=== PATIENT | female | born 1990 | race African-American/Black ===

== ENCOUNTER 2025-01-26 11:26 | Emergency (ER) | payer MEDICAID ==
[~2025-01-26] VITALS: Ht 160 cm; Wt 50.0 kg
[~2025-01-26 11:26] MED LIST: NEOM10DR45 OT; ONDA8TAB9 PO
[2025-01-26 11:34] VITALS: BP 115/88; PULSE 68; RESP 16; TEMP 97.8; O2SAT 98
--- NOTE | 2025-01-26 11:36 | Physician Documentation ---
History of Present Illness Stated Complaint: MED CLEARANCE Time Seen by MD: 11:29 Primary Medical Doctor: [facility] 34-year-old female presents via [facility] for a suspected foreign body in her rectum. According to [employer] the x-ray at the assisted indicated some sort of mental object that they attempted to retrieve however they were unable to. Patient states she does not know what the object is but thinks it is some kind of "metal object" Day of Onset: January 26, 2025 Medication Reconciliation Allergies: Coded Allergies: No Known Allergies (Unverified , 01/03/15) Scheduled Neomy Sulf/Polymyx B Sulf/Hc (Cortisporin Otic Suspension*), 5 DROP OT QID Ondansetron (Zofran Odt), 4 MG PO QID Past Medical History Past Medical History: No Pertinent History Past Surgical History: no surgical history Alcohol Use: None Drug Use: methamphetamine Lives with: Spouse Lives In: Home Occupation: employed Review of Systems All Other Systems at this time: Reviewed and Negative ROS As stated above in the HPI, otherwise all systems are reviewed and negative. Physical Exam Physical Exam General: Alert, no apparent distress. HEENT: PERRL, EOMI, no injection, moist mucous membranes. Gastrointestinal: Soft, nontender, nondistended. Bowels sounds present. Neurologic: Oriented x4. Psychiatric: Anxious appearing Skin: Normal color, warm and dry. No edema, no ecchymosis. Progress Results/Orders Results/Orders Orders - RELL BURDEN [employer] I[employer]USTRATOR Abdomen,Single View(Kub) (01/26/25 11:32) Medical Decision Making Findings Her x-ray in my interpretation I suspect a metallic object in the rectal vault. The CT indicated that there is a metallic object in the rectal vault. I gave the patient the option of knee mainly removing the object via exam or taking medication to have a bowel movement to have the the object excreted She opted for an enema After multiple modalities including soapsuds enema mineral L Dulcolax and Mag citrate with the patient senior living jumped on the sink, PD acquiesced to releasing the patient and allowing her to pass the foreign object which I suspect is alum inum foil encased drugs we will have to pass on its own. Patient has been resistant to treatment throughout. He has been hemodynamically stable throughout her vitals are reassuring. He was suspect there are some psychiatric element to patient's behavior this point she can leave AMA understanding the risks involved with this Differential Dx:Considerations: Include: AAA, -Complete, - Incomplete, -Inevitable, -Missed, -Threatened, Abruptio placentae, Angina/DE, Aortic dissection, Appendicitis, Bowel obstruction, Cholangitis, Cholelithasis, Constipation, Diverticular disease, Esophageal rupture, Esophagitis, Gastritis/PUD, Gastroenteritis, GI hemorrhage, Hernia, Hepatitis, Inflammatory BD, Ischemic bowel, Ovarian cyst/torsion, Pancreatitis, PID, Porphyria, Trauma, intraabdominal, Urinary obstruction, Urinary tract infection, Urolithiasis, Other Departure Disposition: LEFT AGAINST MEDICAL ADVICE Impression: Primary Impression: General medical exam Condition: Stable Additional Instructions: Patient was advised of the risks of having a foreign body in her rectum up to including including sepsis perforation an all other associated risks with having potential drugs in your rectum Referrals: NO PRIMARY CARE PROVIDER (PCP) Education Educated: Patient Signature Scribe Signature: f Attestation: The note accurately reflects work and decisions made by me.Rell Douglas NP 01/26/25 11:50 RELL BURDEN NP January 26, 2025 11:36
[2025-01-26] MEDS ORDERED: PEG 3350/Na sulf,bicarb,Cl/KCl oral sol 4 liter bottle PO ONE (12:05)
--- NOTE | 2025-01-26 12:28 | RADIOLOGY REPORT ---
Exam: DI ABDOMEN,SINGLE VIEW(KUB) Indication: FB Comparison: None Technique: 1 radiographic views of the abdomen. Findings: 4 cm metallic foreign body seen in the pelvis IMPRESSION: 1. Foreign body 2. No bowel obstruction
[2025-01-26 12:33] LABS: BILIRUBIN,URINE NEGATIVE (Neg); CLARITY,URINE CLOUDY (Clear); COLOR,URINE YELLOW (Yellow); GLUCOSE, URINE NEGATIVE (Neg); KETONES,URINE NEGATIVE (Neg); LEUKOCYTE ESTERASE ,URINE TRACE (Neg); NITRITES, URINE POSITIVE (Neg); OCCULT BLOOD,URINE NEGATIVE (Neg); PROTEIN,URINE TRACE mg/dl (Neg)
[2025-01-26 12:35] LABS: URINE HCG NEGATIVE (NEG)
[2025-01-26 12:40] LABS: UA COLLECTION TYPE CLN CATCH MIDSTREAM; WBC,URINE 20-30 /HPF (0-4)
[2025-01-26 12:41] LABS: BACTERIA,URINE 4+ /HPF (Neg); MUCUS STRANDS NONE SEEN /LPF (Neg); RBC,URINE NONE SEEN /HPF (0-2); SQUAMOUS EPITHELIAL CELL,UR MANY /LPF (FEW); WBC CLUMPS,URINE FEW /HPF (NEGATIVE)
--- NOTE | 2025-01-26 13:18 | RADIOLOGY REPORT ---
Exam: CT CT ABDOMEN PELVIS History: FB Comparison Study: None Technique: Multidetector spiral CT of the abdomen was performed from lung bases to pubic symphysis. Imaging was performed without IV contrast. Axial, coronal and sagittal multiplanar reformats were ob tained from the axial data set by the technologist. Radiation Dose : 1. Abdomen/Pelvis: CTDIvol 7 mGy, DLP 318 mGy*cm. Findings: Evaluation of solid organs is limited due to lack of intravenous contrast use. Lung Bases: No acute or significant lung base finding. Normal heart size. No pleural or pericardial effusion. Liver: The liver is normal in size. No focal lesions. Gallbladder and Biliary Tree: Unremarkable Spleen: Unremarkable Pancreas: The pancreas is grossly normal in appearance. Adrenal Glands: Unremarkable Kidneys: Kidneys are grossly normal without calculi or hydronephrosis. Bladder: Grossly unremarkable for degree of distention. Bowel: 4 cm opaque foreign body in the right side of the rectum. Marked artifact is noted and I can n ot tell whether this has perforated the rectal wall. Appendix not identified No small bowel obstruction Ascites: Absent Lymphadenopathy: No mesenteric, retroperitoneal or periportal lymphadenopathy. Abdominal Wall and Mesentery: Unremarkable. Vasculature: The visualized abdominal aorta is normal in size and caliber. Evaluation of abdominal a nd pelvic vessels is limited due to lack of intravenous contrast. Pelvic Organs: Unremarkable Musculoskeletal: No aggressive focal bony lesions, acute fractures or dislocation. IMPRESSION: 1. 4 cm metallic foreign body in the right side of the rectum. It is difficult to tell whether there is perforation of the rectal wall although I do not identify free fluid in the pelvis. Radiation optimization: All CT scans at this facility use at least one of these dose optimization mercedes hniques: automated exposure control mA and/or kV adjustment per patient size (includes targeted exam s where dose is matched to clinical indication) or iterative reconstruction.
[2025-01-26] MEDS ORDERED: bisacodyl 10mg suppository rectal RC STA (13:24)
[2025-01-26] MEDS: mineral oil 133ml enema RC PRN (14:14)
[2025-01-26] MEDS: magnesium citrate 296ml oral solution PO ONE (15:47)
== END 2025-01-26 16:13 | disposition left against medical advice (07) ==
LOC: ER 11:27 → EEVIPCON 11:27 → ER 16:13
DX: Z00.8 Encounter for other general examination (principal); F15.90 Other stimulant use, unspecified, uncomplicated
CPT/HCPCS: 74018; 74176; 81001; 81025; 99284